=== PATIENT | female | born 1995 | race Caucasian/White ===

== ENCOUNTER → 2016-10-31 | Outpatient (CLI) | payer BC, OTHER ==
[2016-10-31 10:45] LABS: CH 27.5; CHCM 32.1; HCT 37.7 % (34.0-46.0); HGB 12.4 gm/dL (11.4-16.0); MCH 28.4 pg (25.0-35.0); Mean Platelet Volume 6.7; RBC 4.39 m/uL (3.80-5.40); RDW 13.6 % (11.5-15.5); WBC 8.6 k/uL (3.8-10.6)
[2016-10-31 11:01] LABS: Glucose 100 mg/dL (74-99); Non-African American GFR(MDRD) >60 (>60 ml/min/1.73 sqM)
[2016-10-31 11:33] LABS: Hepatitis B Surface Ag Index 0.07
== END | disposition home or self-care (01) ==
LOC: LABWHC1 09:56
PROVIDERS: ATTEND Obstetrics & Gynecology
DX: Z34.81 Encounter for supervision of other normal pregnancy, first trimester (principal); Z3A.00 Weeks of gestation of pregnancy not specified
CPT/HCPCS: 36415; 82565; 82947; 85027; 86762; 86780; 86850; 86900; 86901; 87340

== ENCOUNTER → 2017-02-13 | Outpatient (CLI) | payer BC, OTHER ==
[2017-02-13 16:17] LABS: CH 26.1; CHCM 31.5; HCT 27.6 % (34.0-46.0); HDW 3.37; HGB 8.9 gm/dL (11.4-16.0); Hypochromasia Moderate; MCH 26.9 pg (25.0-35.0); MCHC 32.3 g/dL (31.0-37.0); MCV 83.2 fL (80.0-100.0); RBC 3.32 m/uL (3.80-5.40); RDW 13.4 % (11.5-15.5); WBC 11.8 k/uL (3.8-10.6)
[2017-02-13 16:18] LABS: Appearance,Urine Clear (Clear); Bilirubin,Urine Negative (Negative); Glucose,Urine (UA) Negative (Negative); Ketones,Urine Negative (Negative); Leukocyte Esterase,Urine Negative (Negative); Nitrite,Urine Negative (Negative); PH, Urine 6.5 (5.0-8.0); Protein,Urine Trace (Negative); Specific Gravity,Urine 1.019 (1.001-1.035); UA Billing (MACRO vs. MICRO) CHEM; Urobilinogen,Urine <2.0 mg/dL (<2.0)
== END | disposition home or self-care (01) ==
LOC: LABWHC1 14:46
PROVIDERS: ATTEND Obstetrics & Gynecology
DX: Z34.82 Encounter for supervision of other normal pregnancy, second trimester (principal)
CPT/HCPCS: 36415; 81003; 82950; 85027; 87086

== ENCOUNTER → 2017-03-20 | Outpatient (CLI) | payer BC, OTHER ==
--- NOTE | 2017-03-20 11:09 | US ---
EXAMINATION TYPE: US OB anatomy transabd DATE OF EXAM: 03/20/2017 COMPARISON: NONE HISTORY: [id number] Large for dates TECHNIQUE: Transabdominal (TA) EXAM MEASUREMENTS: GESTATIONAL AGE / DATING Physician Established: (32 weeks/0 days) EDC: 05/15/17 Dates by LMP: unknown Dates by First Scan: not available Dates by Current Scan for: (32 weeks/3 days) EDC: 05/12/17 SURVEY IUP: Single PLACENTA: Anterior PREVIA: No previa MAI: 11.3 cm CERVICAL LENGTH (transabdominal: norm > 3.0cm): cm CERVICAL LENGTH (transvaginal: norm> 2.5cm): 4.0 cm BIOMETRY PRESENTATION: Vertex LIE: Longitudinal BPD: 8.1 cm 32 weeks / 4 days HC: 29.2 cm 32 weeks / 2 days AC: 28.3 cm 32 weeks / 3 days FL: 6.2 cm 32 weeks / 1 days ESTIMATED WEIGHT IN GRAMS: 1940 grams ESTIMATED WEIGHT IN LBS/OZS: 4 lbs. 4 oz. WEIGHT PERCENTAGE BASED ON ESTABLISHED DATE: 48 % HC/AC: 1.0 FL/AC: 22 HEART RATE: 143 bpm RHYTHM: normal ANATOMY SEEN (within normal limits): Midline Falx Cavus Septi Pellucidi Four Chamber Heart Stomach Situs Nose / Lips Diaphragm Kidneys (bilateral) Bladder Three Vessel Cord Arms (bilateral) Legs (bilateral) ANATOMY NOT SEEN: Due to position, shadowing of bones, advanced age * Lateral Vent (< 1 cm) * Cisterna Magna (< 1.1 cm) * Nuchal Fold (< 0.6 cm) * Cerebellum (varies with age) Choroid Plexus (bilateral) Cord Insert Longitudinal Spine Transverse Spine Outflow tracts: LVOT/RVOT IMPRESSION: Single live intrauterine with a sonographic age of 32 weeks and 3 days and estimated date o f delivery of 05/12/2017, concordant with age established by the physician. Note the above anatomy wa s not visualized due to positioning.
== END | disposition home or self-care (01) ==
LOC: RADUSWWP 09:54
PROVIDERS: ATTEND Obstetrics & Gynecology
DX: O36.5930 Maternal care for other known or suspected poor fetal growth, third trimester, not applicable or unspecified (principal); Z3A.32 32 weeks gestation of pregnancy
CPT/HCPCS: 76811

== ENCOUNTER 2017-08-21 19:51 | Emergency (ER) | payer OTHER, BC ==
[2017-08-21 19:55] VITALS: RESP 18; TEMP 98.3
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
[2017-08-21 22:09] VITALS: BP 119/87; PULSE 69
== END 2017-08-21 22:09 | disposition home or self-care (01) ==
LOC: EC 19:51
DX: S06.0X0A Concussion without loss of consciousness, initial encounter (principal); S13.4XXA Sprain of ligaments of cervical spine, initial encounter; M25.531 Pain in right wrist; Z88.1 Allergy status to other antibiotic agents; V49.40XA Driver injured in collision with unspecified motor vehicles in traffic accident, initial encounter; Y92.410 Unspecified street and highway as the place of occurrence of the external cause
CPT/HCPCS: 70450; 72125; 99284